=== PATIENT | male | born 1975 | race Caucasian/White ===

== ENCOUNTER 2017-04-07 08:23 | Emergency (ER) | payer OTHER, BC ==
[~2017-04-07] VITALS: Ht 177.8 cm; Wt 97.7 kg
[2017-04-07] MEDS ORDERED: LISI2.5T3 PO (08:38)
[2017-04-07] MEDS ORDERED: METF500T13 PO (08:38)
--- NOTE | 2017-04-07 09:41 | REP ---
Clinical: Trauma . Comparison: None . Findings: The ventricles, sulci, and cisterns are normal in position and appearance. Zendejas-white differentiation is maintained. No acute intracranial hemorrhage, mass/mass effect, pathology or trauma/injury. No evidence for acute infarction. No extra-axial fluid collection. Calvarium is intact. Paranasal sinuses demonstrate mild mucosal thickening consistent with chronic sinusitis. Mastoid air cells are clear. Impression: Mild sinus disease. No evidence for acute intracranial pathology or trauma/injury. Signed by Devan Barnes MD 04/07/2017 09:33 A
--- NOTE | 2017-04-07 09:43 | REP ---
Clinical: Trauma. Comparison: None. Technique: Axial noncontrast images from the skull base to the thoracic inlet with coronal and sagittal re-formations Findings: Straightening of normal lordosis may be secondary to positioning versus pain/spasm. Normal alignment is maintained. Cervical vertebral bodies including transverse processes and spinous processes are intact and there is no evidence for acute fracture / compression injury or subluxation. Spinal canal is patent. Posterior elements are intact. Paravertebral soft tissues are normal. Impression: Straightening of normal lordosis. Otherwise, normal noncontrast cervical spine CT. No evidence for acute pathology or trauma/injury. Signed by Devan Barnes MD 04/07/2017 09:35 A
--- NOTE | 2017-04-07 10:50 | REP ---
Clinical: Trauma . Comparison: None . Technique: PA and lateral. Findings: The mediastinum and cardiac silhouette are normal. The lung burnett are clear and without acute consolidation, effusion, or pneumothorax. The skeletal structures are intact and normal. Impression: 1. No acute cardiopulmonary process. Signed by Devan Barnes MD 04/07/2017 10:41 A
[2017-04-07 11:41] VITALS: O2SAT 96
[2017-04-07] MEDS ORDERED: IBUP-1022 PO (11:51)
[2017-04-07 12:05] VITALS: BP 136/88
== END 2017-04-07 11:58 | disposition home or self-care (01) ==
LOC: M ED 08:23 → EDBD 08:23 → M ED 11:58
DX: S06.0X0A Concussion without loss of consciousness, initial encounter (principal); W00.0XXA Fall on same level due to ice and snow, initial encounter; Y92.139 Unspecified place military base as the place of occurrence of the external cause; Y93.01 Activity, walking, marching and hiking; Y99.0 Civilian activity done for income or pay

== ENCOUNTER → 2018-12-14 | Outpatient (REF) | payer BC ==
[~2018-12-14] MED LIST: IBUP-1022 PO; LISI-1046 PO; METF500T13 PO
== END ==
LOC: M SFHCLERA 12:06
PROVIDERS: ATTEND Physician Assistant
DX: J02.9 Acute pharyngitis, unspecified (principal)

== ENCOUNTER → 2022-06-09 | Outpatient (CLI) | payer BC ==
[~2022-06-09] MED LIST changes: +ATOR1TAB21 PO; -LISI-1046 PO; +LISI2.5T9 PO; +METF750T36 PO
== END ==
LOC: M LABSMTC 10:52
PROVIDERS: ATTEND Anesthesiology
DX: Z01.812 Encounter for preprocedural laboratory examination (principal); Z11.52 Encounter for screening for COVID-19

== ENCOUNTER 2022-06-14 06:44 | Day surgery (SDC) | payer BC ==
[~2022-06-14] VITALS: Ht 177.8 cm; Wt 104.8 kg
[~2022-06-14 06:44] MED LIST changes: +LIDOCAINE 2% 100MG/5ML SDV (FOR ANES.) As Ordered ONE; +NS 1,000 ML IV ONE; +SIMETHICONE 40MG/0.6ML DROPS 30ML As Ordered ONE; +propofoL 200 MG/20 ML VIAL As Ordered ONE
[2022-06-14 08:11] VITALS: BP 134/92
== END 2022-06-14 08:12 | disposition home or self-care (01) ==
LOC: M OPP 06:44
PROVIDERS: ATTEND Surgery
DX: Z12.11 Encounter for screening for malignant neoplasm of colon (principal); K63.5 Polyp of colon; Z79.02 Long term (current) use of antithrombotics/antiplatelets; Z79.1 Long term (current) use of non-steroidal anti-inflammatories (NSAID); Z79.84 Long term (current) use of oral hypoglycemic drugs; E11.9 Type 2 diabetes mellitus without complications; I10 Essential (primary) hypertension; E78.00 Pure hypercholesterolemia, unspecified

== ENCOUNTER → 2023-01-21 | Outpatient (REF) | payer BC ==
[~2023-01-21] MED LIST changes: -LIDOCAINE 2% 100MG/5ML SDV (FOR ANES.) As Ordered ONE; -NS 1,000 ML IV ONE; -SIMETHICONE 40MG/0.6ML DROPS 30ML As Ordered ONE; -propofoL 200 MG/20 ML VIAL As Ordered ONE
[2023-01-21 12:07] LABS: ALBUMIN 3.7 G/DL (3.2-5.2); ALKALINE PHOSPHATASE 68 U/L (46-116); ALT/SGPT 33 U/L (7.0-40); AST/SGOT 21 U/L (<34); BILIRUBIN,TOTAL 0.6 MG/DL (0.3-1.2); BLOOD UREA NITROGEN 14 MG/DL (9-23); CALCIUM LEVEL 8.7 MG/DL (8.5-10.1); CARBON DIOXIDE LEVEL 25 MMOL/L (20-31); CHLORIDE LEVEL 105 MMOL/L (98-107); CREATININE FOR GFR 0.91 MG/DL (0.70-1.30); GLOMERULAR FILTRATION RATE > 60.0 (>60); GLUCOSE, FASTING 208 MG/DL (60-100); POTASSIUM SERUM 4.8 MMOL/L (3.5-5.1); SODIUM LEVEL 137 MMOL/L (136-145); TOTAL PROTEIN 7.2 G/DL (5.7-8.2)
[2023-01-21 12:18] LABS: HEMOGLOBIN A1c 9.2 % (4.0-6.0)
== END ==
LOC: M SFHCCLAY 08:30
PROVIDERS: ATTEND Nurse Practitioner Family
DX: E11.9 Type 2 diabetes mellitus without complications (principal)

== ENCOUNTER → 2025-03-28 | Outpatient (CLI) | payer BC ==
[~2025-03-28] MED LIST changes: -IBUP-1022 PO; +IBUP600T42 PO
== END ==
LOC: M CLY 14:07
PROVIDERS: ATTEND Nurse Practitioner Family
DX: M54.17 Radiculopathy, lumbosacral region (principal); M25.551 Pain in right hip; M47.817 Spondylosis without myelopathy or radiculopathy, lumbosacral region